=== PATIENT | male | born 1970 | race Caucasian/White ===

== ENCOUNTER 2019-11-07 10:51 | Emergency (ER) | payer SELFPAY ==
[~2019-11-07] VITALS: Ht 177.8 cm; Wt 90.9 kg
[2019-11-07] MEDS ORDERED: ACETAMINOPHEN 325 MG TABLET PO ONE (12:00)
[2019-11-07] MEDS ORDERED: IBUPROFEN 800 MG TABLET PO ONE (12:30)
[2019-11-07 12:41] VITALS: BP 146/96
[2019-11-07] MEDS ORDERED: ONDANSETRON HCL 4 MG TABLET PO ONE (12:45)
== END 2019-11-07 12:55 | disposition home or self-care (01) ==
LOC: EMS 10:52
DX: R51 Headache (principal); I10 Essential (primary) hypertension; F17.210 Nicotine dependence, cigarettes, uncomplicated
CPT/HCPCS: 70450; 99284; Q0162